=== PATIENT | female | born 1950 | race Two or more races ===

== ENCOUNTER 2024-02-18 17:02 | Emergency (ER) | payer OTHER, MEDICARE ==
[~2024-02-18] VITALS: Ht 170.2 cm; Wt 85.9 kg
[2024-02-18 18:31] VITALS: BP 145/90; PULSE 90; RESP 18; TEMP 98.9; O2SAT 97
[2024-02-18] MEDS: KETOROLAC TROMETH 30 MG/ML 1ML VIAL IM ONE (18:45)
== END 2024-02-18 19:31 | disposition home or self-care (01) ==
LOC: ER 17:02
DX: R51.9 Headache, unspecified (principal); I10 Essential (primary) hypertension; E78.5 Hyperlipidemia, unspecified; Z88.2 Allergy status to sulfonamides
CPT/HCPCS: 96372; 99283; J1885